=== PATIENT | male | born 1955 | race Caucasian/White ===

== ENCOUNTER 2023-06-10 12:50 | Observation (INO) | payer OTHER, SELFPAY ==
[2023-06-10] VITALS (17 sets, daily range): BP systolic 115–166; BP diastolic 56–95; PULSE 82–103; RESP 16; TEMP 36.7–36.8; O2SAT 86–98; BMI 38.3; BMI 39.8
--- NOTE | 2023-06-10 13:39 | CRLHL7_ITS ---
For Patients: As a result of the Century Cures Act, medical imaging exams and procedure reports are released immediately into your electronic medical record. You may view this report before your referring provider. If you have questions, please contact your health care provider. INDICATION: Sore throat. TECHNIQUE: CT of the neck with 143 cc Isovue 370 iodinated contrast agent. Coronal and sagittal reconstructions are included. COMPARISON: None. FINDINGS: Bilateral tonsillar enlargement and hyper enhancement with submucosal edema, most compatible with pharyngitis. No organized fluid collection. Localized effacement of the oropharyngeal airway. Several mildly prominent upper cervical lymph nodes, likely reactive. The oral cavity and hypopharyngeal spaces are normal. The supraglottic, glottic and infraglottic larynx are normal. The airway including the trachea is normal and is patent. The parotid glands, submandibular and sublingual glands are normal in appearance. The thyroid gland is normal in appearance. The vascular structures opacify normally with contrast material. No suspicious lytic or blastic osseous lesions. Scattered cervical spondylosis without high-grade bony spinal canal/neural foraminal stenosis. No periapical dental disease. Visualized paranasal sinuses and mastoid air cells are clear. Visualized orbital and intracranial contents are normal. Supraclavicular regions, mediastinum and soft tissues of the imaged chest wall are normal. Visualized portions of the upper lungs are clear. IMPRESSION: 1. Findings compatible with pharyngitis. No tonsillar or peritonsillar abscess. Localized effacement of the oropharyngeal airway from edema/inflammation. Please note that all CT scans at this facility use dose modulation, iterative reconstruction, and/or weight-based dosing when appropriate to reduce radiation dose to as low as reasonably achievable. Dictated by Emre Arana MD @ 06/10/2023 5:27:57 PM (Electronically Signed)
--- NOTE | 2023-06-10 13:44 | ED.GENADULT ---
HPI - General Adult General Date Seen: 06/10/23 Chief complaint: Ear/Nose/Throat Problem Stated complaint: abscess in throat Time Seen by Provider: 06/10/23 13:17 History of Present Illness HPI narrative: 67 year old male with a history of obesity, type 2 diabetes (generally well controlled based on freestyle continuous glucose monitor), history of right-sided otitis externa and right facial cellulitis (apparently required hospitalization for antibiotics for treatment of cellulitis a few years ago at [facility]) who was referred to the ER today from urgent care for evaluation of right facial pain and suspicion for peritonsillar abscess. Per records from the Urgent Care, he presented this morning for for evaluation of right ear pain that started two days ago. Patient states that they have been having severe right ear pain, difficulty swallowing and severe pain when opening their mouth. Upon exam patient have unilateral right sided tonsillar hypertrophy, with uvula deviated to the left. Instructed patient that they would need to be seen in an ER for evaluation of peritonsillar abscess. According to the patient and his son he has actually had some pain affecting his right upper and lower jaw for a couple of days. Also pain radiating to his right face and right ear beginning last night. He had his give him a couple of topical antibiotic drops into his right ear last night. He had taken ibuprofen 800 mg, then acetaminophen 500 mg and 1000 mg per dose without much improvement in his pain. He has not had a fever. No recent nasal congestion, cough, sore throat. No fever. Related Data Home Medications Medication Instructions Recorded Confirmed atorvastatin 40 mg tablet (Lipitor) 20 mg PO HS 06/10/23 06/10/23 chlorthalidone 25 mg tablet 25 mg PO DAILY 06/10/23 06/10/23 empagliflozin 25 mg tablet 25 mg PO HS 06/10/23 06/10/23 (Jardiance) insulin glargine 100 unit/mL (3 32 unit subcut QPM 06/10/23 06/10/23 mL) subcutaneous pen (Lantus Solostar U-100 Insulin) losartan 100 mg tablet (Cozaar) 100 mg PO DAILY 06/10/23 06/10/23 metformin 850 mg tablet 850 mg PO BID 06/10/23 06/10/23 phentermine 37.5 mg tablet 37.5 mg PO DAILY 06/10/23 06/10/23 potassium chloride 20 mEq 20 meq PO DAILY 06/10/23 06/10/23 tablet,extended release pregabalin 200 mg capsule (Lyrica) 200 mg PO BID 06/10/23 06/10/23 Allergies Allergy/AdvReac Type Severity Reaction Status Date / Time Iodinated Contrast Media AdvReac Mild Rash Verified 06/10/23 17:03 [facility] Medical History (Updated 06/10/23 @ 18:55 by Stan Zazueta MD) Obesity (BMI 30-39.9) ?E66.9 - Obesity, unspecified (ICD-10) Sleep apnea ?G47.30 - Sleep apnea, unspecified (ICD-10) BPH (benign prostatic hyperplasia) ?N40.0 - Benign prostatic hyperplasia without lower urinary tract symptoms (ICD-10) Hypertension ?I10 - Essential (primary) hypertension (ICD-10) Diabetes mellitus type 2 in obese ?E11.69 - Type 2 diabetes mellitus with other specified complication (ICD-10) ?E66.9 - Obesity, unspecified (ICD-10) Surgical History (Updated 06/10/23 @ 18:47 by Stan Zazueta MD) S/P right knee arthroscopy ?Z98.890 - Other specified postprocedural states (ICD-10) S/P left knee arthroscopy ?Z98.890 - Other specified postprocedural states (ICD-10) S/P TURP (transurethral resection of prostate) ?Z90.79 - Acquired absence of other genital organ(s) (ICD-10) Social History (Updated 06/10/23 @ 18:50 by Stan Zazueta MD) Narrative: He lives in [place] with his . Gets healthcare through [facility] and [facility]. Quit smoking in 2012. Does not drink alcohol. Code status is full. 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 Alert. Conversant, but uncomfortable and holding the right side of his face. Patient's son attentively at his side. HENT: Head: Atraumatic. Nose: Nose normal. Right ear: Pinna, canal, TM are normal. Mastoid normal. Left ear: Mastoid, canal, pinna are normal. There is erythema of a portion of the left tympanic membrane. No bulging. Normal inspection of the face. He is heavy set so has soft tissue redundancy affecting both sides of his jaw but no asymmetric swelling or redness. Mouth/Throat: No trismus. Dentition generally normal. No obvious cavities or dental fractures. Tongue normal. Oral mucosa is moist. He has erythema and edema affecting both of his peritonsillar pillars in both tonsils. Although he was sent here from urgent care because he had right tonsillar swelling and left deviation of the uvula, I do not appreciate that on my exam. I think he has symmetrically enlarged left and right tonsils with uvula in the midline. He does have fairly significant edema of his tonsils and. Tonsillar pillars but not quite a ?kissing? tonsil. Phonation is normal. No stridor. No respiratory distress. Eyes: Conjunctivae normal. EOM normal. Pupils equal, round, and reactive to light. No scleral icterus. Neck: Normal range of motion. No anterior swelling or tracheal shift. Neck supple. No tracheal deviation present. Cardiovascular: Normal rate, regular rhythm. No gallop. No friction rub. No murmur heard. Symmetric radial artery pulses Pulmonary/Chest: Effort normal. No stridor. No respiratory distress. No wheezes. No rales. No rhonchi . No tenderness. Abdominal: Soft. No distension. No mass. No tenderness. No rebound. No guarding. Musculoskeletal: RUE: Normal range of motion. No tenderness. No deformity LUE: Normal range of motion. No tenderness. No deformity RLE: Normal range of motion. No edema. No tenderness. No deformity LLE: Normal range of motion. No edema. No tenderness. No deformity Lymph: No cervical adenopathy. Neurological: Alert and oriented to person, place, and time. Normal strength. CN II-VII intact. No sensory deficit. GCS eye subscore is 4. GCS verbal subscore is 5. GCS motor subscore is 6. Normal coordination Skin: Skin is warm and dry. No rash noted. No pallor. Normal capillary refill. Psychiatric: Normal mood. Normal affect, allowing for pain. Const: Vital Signs, click to edit/add: Vital Signs - 24 hr 06/10/23 12:57 06/10/23 13:09 06/10/23 13:31 Temperature 98.0 F Pulse Rate 85 Pulse Rate [Pulse Oximeter] 82 Respiratory Rate 16 Blood Pressure 134/76 Blood Pressure [Le ft Upper Arm] 141/85 H Pulse Oximetry 98 98 Oxygen Delivery Me thod Room Air Room Air 06/10/23 15:05 06/10/23 15:31 06/10/23 15:38 Temperature Pulse Rate 88 Pulse Rate [Pulse Oximeter] Respiratory Rate Blood Pressure 155/83 H 166/93 H Blood Pressure [Le ft Upper Arm] Pulse Oximetry 96 Oxygen Delivery Me thod 06/10/23 15:45 06/10/23 16:09 06/10/23 16:11 Temperature Pulse Rate 91 92 92 Pulse Rate [Pulse Oximeter] Respiratory Rate Blood Pressure 142/79 H Blood Pressure [Le ft Upper Arm] Pulse Oximetry 92 92 90 Oxygen Delivery Me thod 06/10/23 17:03 06/10/23 17:04 06/10/23 17:15 Temperature Pulse Rate 93 95 92 Pulse Rate [Pulse Oximeter] Respiratory Rate Blood Pressure 136/88 Blood Pressure [Le ft Upper Arm] Pulse Oximetry 93 89 86 L Oxygen Delivery Me thod 06/10/23 17:31 Temperature Pulse Rate Pulse Rate [Pulse Oximeter] Respiratory Rate Blood Pressure 143/95 H Blood Pressure [Le ft Upper Arm] Pulse Oximetry Oxygen Delivery Me thod Course Vital Signs Vital signs: Initial Vital Signs Temperature 98.0 F 06/10/23 12:57 Temperature Source Temporal Artery Scan 06/10/23 12:57 Pulse Rate 82 06/10/23 12:57 Respiratory Rate 16 06/10/23 12:57 Blood Pressure 141/85 H 06/10/23 12:57 Blood Pressure Mean 103 06/10/23 12:57 Blood Pressure Position Supine 06/10/23 12:57 Pulse Oximetry 98 06/10/23 12:57 Oxygen Delivery Method Room Air 06/10/23 12:57 Vital Signs Temperature 98.0 F 06/10/23 12:57 Pulse Rate 82 06/10/23 12:57 Respiratory Rate 16 06/10/23 12:57 Blood Pressure 141/85 H 06/10/23 12:57 Pulse Oximetry 98 06/10/23 12:57 Oxygen Delivery Method Room Air 06/10/23 12:57 Temperature 98.3 F 06/10/23 18:57 Pulse Rate 103 H 06/10/23 18:57 Respiratory Rate 16 06/10/23 18:57 Blood Pressure 149/95 H 06/10/23 18:57 Pulse Oximetry 92 06/10/23 19:09 Oxygen Delivery Method Room Air 06/10/23 18:57 Medications Administered Medications: Generic Name Dose Route Start Last Admin Trade Name Freq PRN Reason Stop Dose Admin Hydromorphone HCl 0.5 mg 06/10/23 13:39 06/10/23 15:50 Hydromorphone 0.5 Mg/0.5 Ml Inj IVP 0.5 mg Q1H PRN Administration Pain Hydromorphone HCl 1 mg 06/10/23 14:15 06/10/23 14:18 Hydromorphone 0.5 Mg/0.5 Ml Inj IM 0.5 mg Q1H PRN Administration Pain Discontinued Medications Generic Name Dose Route Start Last Admin Trade Name Freq PRN Reason Stop Dose Admin Dexamethasone 10 mg 06/10/23 17:40 06/10/23 17:54 Dexamethasone 10 Mg/Ml Inj IVP 06/10/23 17:41 10 mg ONCE ONE Administration Diphenhydramine HCl 50 mg 06/10/23 14:16 06/10/23 14:56 Diphenhydramine 50 Mg/Ml Inj IVP 06/10/23 14:17 50 mg ONCE ONE Administration Hydrocortisone Sodium Succinate 200 mg 06/10/23 14:16 06/10/23 14:56 Hydrocortisone Sod Succinate 50 Mg/Ml Inj IVP 06/10/23 14:17 200 mg ONCE ONE Administration Sodium Chloride 1,000 mls @ 1,000 mls/hr 06/10/23 13:45 06/10/23 15:39 0.9 % Sodium Chloride 1000 Ml IV 06/10/23 14:44 Infused .Q1H GAIL Infusion Ampicillin Sodium/Sulbactam 100 mls @ 200 mls/hr 06/10/23 13:39 06/10/23 15:39 Sodium 3 gm/ Sodium Chloride IVPB 06/10/23 13:40 Infused ONCE ONE Infusion Ketorolac Tromethamine 15 mg 06/10/23 17:13 11/24/23 17:54 Ketorolac 15 Mg/Ml Inj IVP 06/10/23 17:14 15 mg ONCE ONE Administration Ondansetron HCl 4 mg 06/10/23 13:39 06/10/23 14:18 Ondansetron Odt 4 Mg Tab PO 06/10/23 13:40 Not Given ONCE ONE Medical Decision Making MDM Narrative Medical decision making narrative: This is a pleasant 67-year-old gentleman with a past medical history of obesity, sleep apnea, hypertension, type 2 diabetes who is referred from the Urgent Care for evaluation of sore throat and concern for a right peritonsillar abscess. On my exam I appreciate it he does have significant pharyngitis and tonsillitis but I do not appreciate any asymmetry to suggest abscess. We decided to do further workup before and empiric aspiration. Laboratory workup was obtained and shows a leukocytosis with a white count of 15. Glucose is 124. Mora test is negative. Strep is positive. CT scan of the patient's neck was obtained and shows evidence for significant tonsillitis but no evidence for peritonsillar abscess and phlegmon. When the patient arrived we have difficulty obtaining IV access. We initially started with intramuscular pain medications. With help of anesthesia we were able to get IV access for CT scan. He has a history of a rash last year after receiving CT contrast so we did premedicate with Decadron and Benadryl. Patient safely underwent CT did not have any signs of allergic reaction while here in the ER today. Patient was started on IV fluids and IV antibiotics. We administered serial doses of IV Dilaudid for pain. Despite that he was still having ongoing significant sore throat that made it painful for him to swallow. On CT scan there is evidence that he does have some effacement of his airway on the CT scan but clinically he is breathing easily, speaking normally. No respiratory distress. At this point I do not think he needs intubation for airway protection. Based on his degree of pain, inability to tolerate sufficient p.o., and need for airway monitoring we will admitted to the hospital. Will continue IV antibiotics in the hospital at least overnight. Discussed with our hospitalist, Dr. Zazueta, who graciously agrees to admit Lab Data Labs: Lab Results 06/10/23 06/10/23 Range/Units 15:00 15:30 WBC 15.35 H (4.50-11.00) K/uL RBC 5.27 (4.30-5.90) m/uL Hgb 14.9 (13.5-17.5) gm/dL Hct 44.4 (37.0-53.0) % MCV 84 (80-100) fL MCH 28 (26-34) pg MCHC 34 (32-36) gm/dL RDW Coeff of Latricia 13.2 (11.5-15.5) % Plt Count 184 (140-440) K/uL Neut % (Auto) 78.0 H (42.0-72.0) % Lymph % (Auto) 13.4 L (20-44) % Mora % (Auto) 7.6 (0.0-11.0) % Eos % (Auto) 0.5 (0.0-7.0) % Baso % (Auto) 0.2 (0.0-3.0) % Neut # (Auto) 12.00 H (1.7-7.0) K/uL Lymph # (Auto) 2.10 (0.90-2.90) K/uL Mora # (Auto) 1.20 H (0.00-0.90) K/UL Eos # (Auto) 0.10 (0.00-0.50) K/uL Baso # (Auto) 0.00 (0.00-0.30) K/uL Abs Immat Gran (auto) 0.00 (0.00-0.30) K/uL Imm/Tot Granulo (auto) 0.3 % Sodium 138 (135-149) mmol/L Potassium 3.5 L (3.6-5.1) mmol/L Chloride 103 (96-114) mmol/L Carbon Dioxide 24 (20-32) mmol/L Anion Gap 11 (7-15) mEq/L BUN 18 (7-30) mg/dL Creatinine 0.6 (0.5-1.5) mg/dL Estimated Creat Clear 83.23 Estimated GFR 107 ml/min Glucose 124 H (60-115) mg/dL Calcium 8.9 (8.4-10.6) mg/dL Monoscreen Negative (Negative) Group A Strep DNA DETECTED A (Not Detectd) Imaging Data CT neck soft tissue: Attestation: I have reviewed the pertinent imaging results. Radiologist's impression: IMPRESSION: 1. Findings compatible with pharyngitis. No tonsillar or peritonsillar abscess. Localized effacement of the oropharyngeal airway from edema/inflammation. Discharge Plan Discharge Clinical Impression: Acute streptococcal pharyngitis Patient Disposition: Admitted As Observation
[2023-06-10] MEDS: HYDROmorphone 0.5 mg/0.5 ml inj IVP ×2 (14:15→15:50)
[2023-06-10] MEDS: HYDROmorphone 0.5 mg/0.5 ml inj 1 MG IM (14:18)
[2023-06-10] MEDS: diphenhydrAMINE 50 MG/ML inj IVP (14:56)
[2023-06-10] MEDS: HYDROCORTISONE SOD SUCCINATE 50 MG/ML inj 200 MG IVP (14:56)
[2023-06-10] MEDS: 0.9 % SODIUM CHLORIDE 1000 ml 1,000 ML IV (14:57)
[2023-06-10] MEDS: AMPICILLIN/SULBACTAM 3 GM in 0.9 % SODIUM CHLORIDE Mini-bag 100 ML IVPB ×2 (15:01→22:14)
[2023-06-10 15:35] LABS: Basophils Percent Auto 0.2 % (0.0-3.0); Eosinophils Percent Auto 0.5 % (0.0-7.0); Hematocrit 44.4 % (37.0-53.0); Hemoglobin* 14.9 gm/dL (13.5-17.5); Immature Granulocytes Pct Auto 0.3 %; Lymphocytes Percent Auto 13.4 % (20-44); Mean Corpuscular HGB Conc 34 gm/dL (32-36); Mean Corpuscular Hemoglobin 28 pg (26-34); Mean Corpuscular Volume 84 fL (80-100); Monocytes Percent Auto 7.6 % (0.0-11.0); Platelet Count* 184 K/uL (140-440); RDW Coefficient of Variation % 13.2 % (11.5-15.5); Red Blood Count 5.27 m/uL (4.30-5.90); White Blood Count* 15.35 K/uL (4.50-11.00)
[2023-06-10 15:37] LABS: Slide Review Reflex No
[2023-06-10 15:52] LABS: Mono Screen* Negative (Negative)
[2023-06-10 15:53] LABS: Strep A DNA Probe* DETECTED (Not Detectd)
[2023-06-10 16:15] LABS: Chloride* 103 mmol/L (96-114); Potassium* 3.5 mmol/L (3.6-5.1); Sodium* 138 mmol/L (135-149)
[2023-06-10 16:18] LABS: Anion Gap 11 mEq/L (7-15); Blood Urea Nitrogen* 18 mg/dL (7-30); Carbon Dioxide* 24 mmol/L (20-32); Creatinine* 0.6 mg/dL (0.5-1.5); Est. Creatinine Clearance* 83.23; Estimated Glomerular Filt Rate 107 ml/min; Glucose* 124 mg/dL (60-115)
[2023-06-10 16:19] LABS: Calcium* 8.9 mg/dL (8.4-10.6)
[2023-06-10] MEDS: dexAMETHasone 10 MG/ML inj IVP (17:54)
[2023-06-10] MEDS: KETOROLAC 15 MG/ML inj IVP (17:54)
--- NOTE | 2023-06-10 18:42 | P.IMHP_ITS ---
Hospitalist- H&P: HPI History of Present Illness Date Seen: 06/10/23 Chief complaint: abscess in throat Narrative: Lazaro Villa is a 67 year old male with obesity, hypertension, sleep apnea, COPD, diabetes mellitus who presents with 2 day history of right ear pain. He has a previous history of right here infection and right facial cellulitis that required hospitalization a few years ago. He was seen in urgent care clinic today for this and referred to the emergency room over concern of a peritonsillar abscess. He is not aware of a fever. He is having a lot of throat pain which is keeping him from swallowing. His hearing is perhaps more slightly worse than usual but he can hear out of his right ear. He has been using ibuprofen at home with some relief of his ear pain. He is not having any trouble breathing. Review of Systems Narrative: Other than his ear pain and difficulty swallowing he reports generally doing well. No other recent health concerns. [facility] Medical History (Updated 06/10/23 @ 18:55 by Stan Zazueta MD) Obesity (BMI 30-39.9) ?E66.9 - Obesity, unspecified (ICD-10) Sleep apnea ?G47.30 - Sleep apnea, unspecified (ICD-10) BPH (benign prostatic hyperplasia) ?N40.0 - Benign prostatic hyperplasia without lower urinary tract symptoms (ICD-10) Hypertension ?I10 - Essential (primary) hypertension (ICD-10) Diabetes mellitus type 2 in obese ?E11.69 - Type 2 diabetes mellitus with other specified complication (ICD-10) ?E66.9 - Obesity, unspecified (ICD-10) Surgical History (Updated 06/10/23 @ 18:47 by Stan Zazueta MD) S/P right knee arthroscopy ?Z98.890 - Other specified postprocedural states (ICD-10) S/P left knee arthroscopy ?Z98.890 - Other specified postprocedural states (ICD-10) S/P TURP (transurethral resection of prostate) ?Z90.79 - Acquired absence of other genital organ(s) (ICD-10) Social History (Updated 06/10/23 @ 18:50 by Stan Zazueta MD) Narrative: He lives in [place] with his . Gets healthcare through [facility]. Quit smoking in 2012. Does not drink alcohol. Code status is full. 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 Smoking Status: Former smoker Do you use any of these nicotine containing products: None Second hand tobacco smoke exposure: No How often do you have a drink containing alcohol: never AUDIT-C Alcohol total score: 0 Non-prescribed substance use: denies use service: Yes Meds Home Medications and Allergies Home Medications Medication Instructions Recorded Confirmed Type atorvastatin 40 mg tablet (Lipitor) 20 mg PO HS 06/10/23 06/10/23 History chlorthalidone 25 mg tablet 25 mg PO DAILY 06/10/23 06/10/23 History empagliflozin 25 mg tablet 25 mg PO HS 06/10/23 06/10/23 History (Jardiance) insulin glargine 100 unit/mL (3 32 unit subcut QPM 06/10/23 06/10/23 History mL) subcutaneous pen (Lantus Solostar U-100 Insulin) losartan 100 mg tablet (Cozaar) 100 mg PO DAILY 06/10/23 06/10/23 History metformin 850 mg tablet 850 mg PO BID 06/10/23 06/10/23 History phentermine 37.5 mg tablet 37.5 mg PO DAILY 06/10/23 06/10/23 History potassium chloride 20 mEq 20 meq PO DAILY 06/10/23 06/10/23 History tablet,extended release pregabalin 200 mg capsule (Lyrica) 200 mg PO BID 06/10/23 06/10/23 History Allergies Allergy/AdvReac Type Severity Reaction Status Date / Time Iodinated Contrast Media AdvReac Mild Rash Verified 06/10/23 17:03 Exam Narrative: Exam Narrative: He is alert and appears in no distress. Voice is normal. Pinnas external canals and TMs bilaterally normal. Eyes normal. Oropharynx with very small airway, Mallampati 4, with a tongue depressor I can see moderate erythema and bilateral tonsillar enlargement right slightly greater than left. Some tonsillar exudate is also present. There is no stridor. No cervical lymphadenopathy. Respirations are clear to auscultation. Breathing is unlabored. Cardiovascular: S1, S2, regular rate and rhythm. No murmur gallop or rub. Abdomen: Bowel sounds active. Abdomen is soft without tenderness or mass. Extremities with trace edema bilaterally. Const: Vital Signs, click to edit/add: Vital Signs - 24 hr 06/10/23 12:57 06/10/23 13:09 06/10/23 13:31 Temperature 98.0 F Pulse Rate 85 Pulse Rate [Pulse Oximeter] 82 Respiratory Rate 16 Blood Pressure 134/76 Blood Pressure [Le ft Upper Arm] 141/85 H Pulse Oximetry 98 98 Oxygen Delivery Me thod Room Air Room Air 06/10/23 15:05 06/10/23 15:31 06/10/23 15:38 Temperature Pulse Rate 88 Pulse Rate [Pulse Oximeter] Respiratory Rate Blood Pressure 155/83 H 166/93 H Blood Pressure [Le ft Upper Arm] Pulse Oximetry 96 Oxygen Delivery Me thod 06/10/23 15:45 06/10/23 16:09 06/10/23 16:11 Temperature Pulse Rate 91 92 92 Pulse Rate [Pulse Oximeter] Respiratory Rate Blood Pressure 142/79 H Blood Pressure [Le ft Upper Arm] Pulse Oximetry 92 92 90 Oxygen Delivery Me thod 06/10/23 17:03 06/10/23 17:04 06/10/23 17:15 Temperature Pulse Rate 93 95 92 Pulse Rate [Pulse Oximeter] Respiratory Rate Blood Pressure 136/88 Blood Pressure [Le ft Upper Arm] Pulse Oximetry 93 89 86 L Oxygen Delivery Me thod 06/10/23 17:31 Temperature Pulse Rate Pulse Rate [Pulse Oximeter] Respiratory Rate Blood Pressure 143/95 H Blood Pressure [Le ft Upper Arm] Pulse Oximetry Oxygen Delivery Me thod Documenting provider has reviewed patient's vital signs: yes Hospitalist - H&P: Result Labs Labs: Short CBC 06/10/23 Range/Units 15:30 WBC 15.35 H (4.50-11.00) K/uL Hgb 14.9 (13.5-17.5) gm/dL Hct 44.4 (37.0-53.0) % Plt Count 184 (140-440) K/uL BMP 06/10/23 15:30 Sodium 138 Potassium 3.5 L Chloride 103 Carbon Dioxide 24 BUN 18 Creatinine 0.6 Glucose 124 H Calcium 8.[address]- Other: Radiologist's impression: NDICATION: Sore throat. TECHNIQUE: CT of the neck with 143 cc Isovue 370 iodinated contrast agent. Coronal and sagittal reconstructions are included. COMPARISON: None. FINDINGS: Bilateral tonsillar enlargement and hyper enhancement with submucosal edema, most compatible with pharyngitis. No organized fluid collection. Localized effacement of the oropharyngeal airway. Several mildly prominent upper cervical lymph nodes, likely reactive. The oral cavity and hypopharyngeal spaces are normal. The supraglottic, glottic and infraglottic larynx are normal. The airway including the trachea is normal and is patent. The parotid glands, submandibular and sublingual glands are normal in appearance. The thyroid gland is normal in appearance. The vascular structures opacify normally with contrast material. No suspicious lytic or blastic osseous lesions. Scattered cervical spondylosis without high-grade bony spinal canal/neural foraminal stenosis. No periapical dental disease. Visualized paranasal sinuses and mastoid air cells are clear. Visualized orbital and intracranial contents are normal. Supraclavicular regions, mediastinum and soft tissues of the imaged chest wall are normal. Visualized portions of the upper lungs are clear. IMPRESSION: 1. Findings compatible with pharyngitis. No tonsillar or peritonsillar abscess. Localized effacement of the oropharyngeal airway from edema/inflammation. Assessment and Plan Assessment and plan (1) Tonsillitis: Problem comment: Antibiotics and steroids given in the ED. Antibiotics to continue. Monitor for respiratory problems given fairly severe swelling of the airway. monitor for eating and drinking. Status: Acute (2) Acute streptococcal pharyngitis: Problem comment: Continue antibiotics Status: Acute (3) Sleep apnea: Problem comment: On home CPAP Status: Acute (4) Diabetes mellitus type 2 in obese: Problem comment: Monitor blood sugars and use sliding scale insulin. Likely to have elevated sugars with steroid use. Status: Acute (5) Hypertension: Problem comment: Resume home meds Status: Acute (6) Obesity (BMI 30-39.9): Problem comment: At risk for difficult airway management Status: Acute (7) Dehydration: Problem comment: Unable to take in significant food or fluid today due to pharyngitis. IV fluids pending return to oral fluids Status: Acute Plan Patient is admitted to the hospital for IV fluids, IV antibiotics, pain management and monitoring of airway. Anticipate discharge to home tomorrow if clinically improving. Total time spent today is 60 minutes, 40 minutes in coordination care discussing with patient and son ongoing evaluation management.
[2023-06-10] MEDS: POTASSIUM BICARB 25 MEQ EFFERVESCENT TAB PO (22:10)
[2023-06-10] MEDS: ATORVASTATIN CALCIUM 40 MG TABLET 20 MG PO (22:11)
[2023-06-10] MEDS: PREGABALIN 100 MG CAPSULE 200 MG PO (22:12)
[2023-06-10] MEDS: INSULIN ASPART 100 UNIT/ML SUBCUT (22:13)
[2023-06-10] MEDS: SODIUM CHLORIDE 0.9 % (FLUSH) 10 ML SYRINGE 5 ML IVF (22:15)
[2023-06-10] MEDS: 0.9 % SODIUM CHLORIDE 250 ml IV (23:07)
[2023-06-11 03:00] VITALS: BP 126/76; PULSE 73; RESP 16; TEMP 36.8; O2SAT 96
[2023-06-11] MEDS: AMPICILLIN/SULBACTAM 3 GM in 0.9 % SODIUM CHLORIDE Mini-bag 100 ML IVPB ×2 (03:25→09:39)
[2023-06-11] MEDS: HYDROmorphone 0.5 mg/0.5 ml inj IVP (03:34)
--- NOTE | 2023-06-11 06:13 | PC.NURSE ---
Shift note: Pt is doing well. Diet advance from full liquid to regular. Able to eat and swallow regular diet without any difficulty. Asked for pain medication at 0330 for pain level 5 to the throat. No fever and SOB reported. O2>90 in room air throughout the shift. Independent in room. Alert and oriented, vitally stable. Pt had adequate sleep. Pt was up at 0430 and been playing games on his phone.
[2023-06-11 06:39] LABS: Basophils Percent Auto 0.1 % (0.0-3.0); Hematocrit 45.1 % (37.0-53.0); Hemoglobin* 14.6 gm/dL (13.5-17.5); Immature Granulocytes Pct Auto 1.2 %; Lymphocytes Percent Auto 10.9 % (20-44); Mean Corpuscular HGB Conc 32 gm/dL (32-36); Mean Corpuscular Hemoglobin 28 pg (26-34); Mean Corpuscular Volume 87 fL (80-100); Monocytes Percent Auto 5.4 % (0.0-11.0); Neutrophils Percent Auto 82.4 % (42.0-72.0); Platelet Count* 210 K/uL (140-440); RDW Coefficient of Variation % 13.3 % (11.5-15.5); White Blood Count* 12.21 K/uL (4.50-11.00)
[2023-06-11 06:42] LABS: Slide Review Reflex No
[2023-06-11 06:58] LABS: Chloride* 96 mmol/L (96-114); Sodium* 138 mmol/L (135-149)
[2023-06-11 07:01] LABS: Anion Gap 9 mEq/L (7-15); Blood Urea Nitrogen* 21 mg/dL (7-30); Carbon Dioxide* 33 mmol/L (20-32); Creatinine* 0.7 mg/dL (0.5-1.5); Est. Creatinine Clearance* 83.23; Estimated Glomerular Filt Rate 102 ml/min; Glucose* 282 mg/dL (60-115)
[2023-06-11 07:02] LABS: Calcium* 8.7 mg/dL (8.4-10.6)
[2023-06-11 07:04] LABS: C Reactive Protein* 7.1 mg/dL (0.5-1.0)
[2023-06-11 08:06] VITALS: BP 151/90; PULSE 74; RESP 20; O2SAT 98
[2023-06-11 08:38] LABS: Hemoglobin A1C* 7.5 % (0-5.6)
[2023-06-11] MEDS: POTASSIUM CHLORIDE 10 MEQ CAPSULE ER 20 MEQ PO (08:47)
[2023-06-11] MEDS: CHLORTHALIDONE 25 MG TABLET PO (08:48)
[2023-06-11] MEDS: METFORMIN 850 MG TABLET PO (08:48)
[2023-06-11] MEDS: POTASSIUM BICARB 25 MEQ EFFERVESCENT TAB 50 MEQ PO (08:48)
[2023-06-11] MEDS: LOSARTAN POTASSIUM 50 MG TABLET 100 MG PO (08:48)
[2023-06-11] MEDS: INSULIN ASPART 100 UNIT/ML SUBCUT (08:50)
[2023-06-11] MEDS: PREGABALIN 100 MG CAPSULE 200 MG PO (08:54)
[2023-06-11] MEDS: SODIUM CHLORIDE 0.9 % (FLUSH) 10 ML SYRINGE 5 ML IVF (08:54)
[2023-06-11] MEDS: OXYCODONE 5 MG TABLET PO (09:07)
--- NOTE | 2023-06-11 10:41 | PC.NURSE ---
Discharge: Patient pleasant and cooperative. Up independently. Vitals stable and WNL, afebrile, o2 sats >90% on RA. IV removed with catheter intact. Tolerating regular diet well, pain 6/10 with swallowing, PRN oxycodone given prior to breakfast. Patient d/c @ 1035 to home.
--- NOTE | 2023-06-11 14:05 | P.DS_ITS ---
DS: Providers Provider Date Seen: 06/11/23 Date of admission: 06/10/23 18:42 Primary care physician: Gio Ibrahim MD Admitting Clinician: Stan Zazueta MD Attending Physician on discharge: Stan Zazueta MD Date of Discharge: 06/11/23 DS: Diagnosis Discharge Diagnosis (1) Tonsillitis: Status: Acute Problem details: Antibiotics and steroids given in the ED. clinically much better today. Ate a regular breakfast. treated with Unasyn in the hospital. Discharge to home on Augmentin (2) Acute streptococcal pharyngitis: Status: Acute Problem details: Continue Augmentin for 10 days (3) Obesity (BMI 30-39.9): Status: Acute Problem details: At risk for difficult airway management. Caution with opioids. (4) Sleep apnea: Status: Acute Problem details: On home CPAP (5) Hypertension: Status: Acute Problem details: Resume home meds (6) Diabetes mellitus type 2 in obese: Status: Acute Problem details: Monitor blood sugars and use sliding scale insulin. Likely to have elevated sugars with steroid use. Hemoglobin A1c 7.5 (7) Dehydration: Status: Acute Problem details: Tolerating oral food and fluids well today DS: Summary Hospital Course Hospital Course: 67-year-old male admitted to the hospital with severe pharyngitis. Unable to tolerate p.o. food and fluid secondary to pain He had prominent bilateral tonsillar swelling on CT scan. Positive strep screen. No identified abscess. Due to concerns about airway he received dexamethasone and was observed in the hospital overnight. This morning he feels much better. He is tolerating a regular breakfast. He is able to swallow with only mild pain. Status at Discharge Functional status at discharge: independent ambulation Overall status at discharge: patient is progressing back to baseline Time Spent with Patient Time attestation: Total time spent providing and/or coordinating discharge services: Time spent: Greater than 30 minutes Exam Narrative: Exam Narrative: He is alert and appears in no distress. Speech is normal. Oropharynx with significantly improved erythema. Exudate is largely resolved. Tonsillar swelling is also improved. Neck is supple without mass or adenopathy. Respirations are clear to auscultation. Const: Vital Signs, click to edit/add: Vital Signs - 24 hr 06/10/23 15:05 06/10/23 15:31 06/10/23 15:38 Temperature Pulse Rate 88 Pulse Rate [Left P ulse Oximeter] Respiratory Rate Blood Pressure 155/83 H 166/93 H Blood Pressure [Le ft Arm] Pulse Oximetry 96 Oxygen Delivery Me thod 06/10/23 15:45 06/10/23 16:09 06/10/23 16:11 Temperature Pulse Rate 91 92 92 Pulse Rate [Left P ulse Oximeter] Respiratory Rate Blood Pressure 142/79 H Blood Pressure [Le ft Arm] Pulse Oximetry 92 92 90 Oxygen Delivery Me thod 06/10/23 17:03 06/10/23 17:04 06/10/23 17:15 Temperature Pulse Rate 93 95 92 Pulse Rate [Left P ulse Oximeter] Respiratory Rate Blood Pressure 136/88 Blood Pressure [Le ft Arm] Pulse Oximetry 93 89 86 L Oxygen Delivery Me thod 06/10/23 17:31 06/10/23 18:57 06/10/23 19:09 Temperature 98.3 F Pulse Rate Pulse Rate [Left P ulse Oximeter] 103 H Respiratory Rate 16 Blood Pressure 143/95 H Blood Pressure [Le ft Arm] 149/95 H Pulse Oximetry 92 92 Oxygen Delivery Me thod Room Air 06/10/23 20:10 06/10/23 23:00 06/10/23 23:00 Temperature 98.2 F Pulse Rate Pulse Rate [Left P ulse Oximeter] 90 Respiratory Rate 16 16 16 Blood Pressure Blood Pressure [Le ft Arm] 115/56 L Pulse Oximetry 92 92 92 Oxygen Delivery Me thod Room Air Room Air Room Air 06/11/23 03:00 06/11/23 08:06 06/11/23 08:06 Temperature 98.2 F Pulse Rate Pulse Rate [Left P ulse Oximeter] 73 74 Respiratory Rate 16 20 Blood Pressure Blood Pressure [Le ft Arm] 126/76 151/90 H Pulse Oximetry 96 98 98 Oxygen Delivery Me thod Room Air Room Air Room Air Documenting provider has reviewed patient's vital signs: yes DS: Data Data Completed and Pending Labs on day of discharge: Labs from last 24 hours 06/11/23 06/11/23 06/10/23 07:54 06:20 15:30 WBC 12.21 H 15.35 H RBC 5.20 5.27 Hgb 14.6 14.9 Hct 45.1 44.4 MCV 87 84 MCH 28 28 MCHC 32 34 RDW Coeff of Latricia 13.3 13.2 Plt Count 210 184 Neut % (Auto) 82.4 H 78.0 H Lymph % (Auto) 10.9 L 13.4 L [place] % (Auto) 5.4 7.6 Eos % (Auto) 0.0 0.5 Baso % (Auto) 0.1 0.2 Neut # (Auto) 10.10 H 12.00 H Lymph # (Auto) 1.30 2.10 [place] # (Auto) 0.70 1.20 H Eos # (Auto) 0.00 0.10 Baso # (Auto) 0.00 0.00 Abs Immat Gran (auto) 0.10 0.00 Imm/Tot Granulo (auto) 1.2 0.3 Sodium 138 138 Potassium 3.0 L 3.5 L Chloride 96 103 Carbon Dioxide 33 H 24 Anion Gap 9 11 BUN 21 18 Creatinine 0.7 0.6 Estimated Creat Clear 83.23 83.23 Estimated GFR 102 107 Glucose 282 H 124 H Hemoglobin A1c 7.5 H Calcium 8.7 8.9 C-Reactive Protein 7.1 H Monoscreen Negative Group A Strep DNA Lab Acknowledgement Test Added 06/10/23 15:00 WBC RBC Hgb Hct MCV MCH MCHC RDW Coeff of Latricia Plt Count Neut % (Auto) Lymph % (Auto) [place] % (Auto) Eos % (Auto) Baso % (Auto) Neut # (Auto) Lymph # (Auto) [place] # (Auto) Eos # (Auto) Baso # (Auto) Abs Immat Gran (auto) Imm/Tot Granulo (auto) Sodium Potassium Chloride Carbon Dioxide Anion Gap BUN Creatinine Estimated Creat Clear Estimated GFR Glucose Hemoglobin A1c Calcium C-Reactive Protein Monoscreen Group A Strep DNA DETECTED A Lab Acknowledgement Imaging CT- Other: Radiologist's impression: INDICATION: Sore throat. TECHNIQUE: CT of the neck with 143 cc Isovue 370 iodinated contrast agent. Coronal and sagittal reconstructions are included. COMPARISON: None. FINDINGS: Bilateral tonsillar enlargement and hyper enhancement with submucosal edema, most compatible with pharyngitis. No organized fluid collection. Localized effacement of the oropharyngeal airway. Several mildly prominent upper cervical lymph nodes, likely reactive. The oral cavity and hypopharyngeal spaces are normal. The supraglottic, glottic and infraglottic larynx are normal. The airway including the trachea is normal and is patent. The parotid glands, submandibular and sublingual glands are normal in appearance. The thyroid gland is normal in appearance. The vascular structures opacify normally with contrast material. No suspicious lytic or blastic osseous lesions. Scattered cervical spondylosis without high-grade bony spinal canal/neural foraminal stenosis. No periapical dental disease. Visualized paranasal sinuses and mastoid air cells are clear. Visualized orbital and intracranial contents are normal. Supraclavicular regions, mediastinum and soft tissues of the imaged chest wall are normal. Visualized portions of the upper lungs are clear. IMPRESSION: 1. Findings compatible with pharyngitis. No tonsillar or peritonsillar abscess. Localized effacement of the oropharyngeal airway from edema/inflammation. Discharge Plan Discharge Disposition: Home, Self-Care Date of Admission: 06/10/23 18:42 Attending Provider on Discharge: Stan Zazueta Primary Care Provider: Gio Ibrahim Condition: Improved Anticipated Discharge Date/Time: 06/11/23 09:30 Discharge Medications: New amoxicillin-pot clavulanate 875-125 mg tablet 1 tab PO BID Qty: 20 0RF ibuprofen 200 mg capsule 400 mg PO Q6H PRNQty: 30 0RF oxycodone 5 mg tablet 5 mg PO TID PRN (Reason: pain) Qty: 6 0RF Continued phentermine 37.5 mg tablet 37.5 mg PO DAILY metformin 850 mg tablet 850 mg PO BID pregabalin [Lyrica] 200 mg capsule 200 mg PO BID losartan [Cozaar] 100 mg tablet 100 mg PO DAILY chlorthalidone 25 mg tablet 25 mg PO DAILY potassium chloride 20 mEq tablet extended release 20 meq PO DAILY insulin glargine [Lantus Solostar U-100 Insulin] 100 unit/mL (3 mL) insulin pen 32 unit subcut QPM Jardiance 25 mg tablet 25 mg PO HS atorvastatin [Lipitor] 40 mg tablet 20 mg PO HS Discharge Orders: Discharge Order (Routine); Ordered 06/11/23 Ordered By: Stan Zazueta Patient Education: Ibuprofen (By mouth), Amoxicillin/Clavulanate Potassium (By mouth), Oxycodone, Rapid Release (By mouth), Strep Throat (DC) Activity Level: Activity as Tolerated Discharge Diet: Regular Follow Up Appointments: Gio Ibrahim MD [Primary Care Provider] - (follow up as needed) Forms: [facility] Info Instructions
--- NOTE | 2023-07-23 17:14 | PC.NURSE ---
Pt's called stating that pt was seen in May for pharyngitis and treated with antibiotics. Pt as a sore throat, ear pain that radiates to his throat, low back and knee pain. Has also been exposed to strep. Informed that pt would need to be seen by a dr prior to getting medications. persistent that she speak with Dr Zazueta to see if he could do that a favor. Per Dr Zazueta, no antibiotics unless he is seen. updated.
== END 2023-06-11 10:35 | disposition home or self-care (01) ==
LOC: ED 13:46 → MEDSURG 18:43
PROVIDERS: Admitting Provider Family Medicine; Emergency Provider Emergency Medicine; PCP Internal Medicine; Visit Provider Family Medicine
DX: J02.0 Streptococcal pharyngitis (principal); J35.1 Hypertrophy of tonsils; D72.829 Elevated white blood cell count, unspecified; E11.69 Type 2 diabetes mellitus with other specified complication; E66.9 Obesity, unspecified; I10 Essential (primary) hypertension; Z68.30 Body mass index [BMI] 30.0-30.9, adult; G47.30 Sleep apnea, unspecified; Z99.89 Dependence on other enabling machines and devices; J44.9 Chronic obstructive pulmonary disease, unspecified; N40.0 Benign prostatic hyperplasia without lower urinary tract symptoms; F11.90 Opioid use, unspecified, uncomplicated; E86.0 Dehydration; Z79.52 Long term (current) use of systemic steroids; Z79.4 Long term (current) use of insulin; Z79.84 Long term (current) use of oral hypoglycemic drugs; Z98.890 Other specified postprocedural states; Z90.79 Acquired absence of other genital organ(s); Z87.891 Personal history of nicotine dependence; Z87.2 Personal history of diseases of the skin and subcutaneous tissue
CPT/HCPCS: 36415; 70491; 80048; 82962; 83036; 85025; 86140; 86308; 87651; 96365; 96366; 96372; 96375; 96376; 99284; A9270; G0378; J0295; J1100; J1170; J1200; J1720; J1885; J7030; J7050; Q9967